=== PATIENT | female | born 1985 | race Caucasian/White ===

== ENCOUNTER 2019-08-07 00:07 | Emergency (ER) | payer SELFPAY ==
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
[2019-08-07 00:20] VITALS: BP 160/102; PULSE 88; RESP 20; TEMP 36.6; O2SAT 99
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
[2019-08-07 01:22] VITALS: BP 140/86; PULSE 100; RESP 20; O2SAT 99
== END 2019-08-07 01:26 | disposition home or self-care (01) ==
PROVIDERS: Emergency Provider Surgery
DX: S63.642A Sprain of metacarpophalangeal joint of left thumb, initial encounter (principal); W22.8XXA Striking against or struck by other objects, initial encounter
CPT/HCPCS: 73130; 99282; 99283

== ENCOUNTER 2021-03-11 22:31 | Emergency (ER) | payer SELFPAY ==
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
== END 2021-03-11 23:29 | disposition left against medical advice (07) ==
PROVIDERS: Emergency Provider Family Medicine
DX: Z04.9 Encounter for examination and observation for unspecified reason (principal)
CPT/HCPCS: 99199

== ENCOUNTER 2021-03-14 18:11 | Emergency (ER) | payer OTHER, SELFPAY ==
--- NOTE | ~2021-03-14 | XR_ITS ---
EXAMINATION: XR chest 1V portable DATE: 03/14/2021 18:53 INDICATION: Shortness of breath. TECHNIQUE: A single frontal view of the chest was obtained. COMPARISON: Chest 01/02/2018, CT abdomen and pelvis 07/27/2017 FINDINGS: The chest demonstrates clear lungs without pneumonia, pleural effusion, or pneumothorax. Th e heart size is normal. There is an old healed left rib fracture. There are changes of disc replaceme nt in cervical spine. IMPRESSION: 1. No acute cardiopulmonary disease. Reviewed, dictated and finalized at location A.
[2021-03-14 18:26] VITALS: BP 109/69; PULSE 128; RESP 40; TEMP 36.8; O2SAT 98
--- NOTE | 2021-03-14 18:31 | ECG_ITS ---
Measurements Intervals [place] Rate: 108 P: 0 [place]: 179 QRS: -22 QRSD: 112 T: 4 QT: 331 QTc: 445 Interpretive Statements SINUS TACHYCARDIA INCOMPLETE RIGHT BUNDLE BRANCH BLOCK BORDERLINE R WAVE PROGRESSION, ANTERIOR LEADS INFERIOR INFARCT, AGE INDETERMINATE BASELINE ARTIFACT- V4-V6 ABNORMAL ECG Electronically Signed On 03-16-2021 7:44:46 CDT by Christiano Page D.O.
--- NOTE | 2021-03-14 18:59 | PC.NURSE ---
1858 PT REFUSED IV AND FLUIDS
[2021-03-14] MEDS: LORazepam (*CRX) 0.5 MG TABLET 1 MG PO (19:00)
[2021-03-14 19:11] LABS: Basophils Absolute Auto 0.05 K/mm3 (0.00-0.10); Basophils Percent Auto 0.7 % (0.0-1.0); Eosinophils Percent Auto 1.4 % (1.0-6.0); Hematocrit 54.2 % (35.0-49.0); Hemoglobin 19.2 g/dL (12.0-15.0); Immature Granulocyte Absolute 0.02 K/mm3 (0.00-0.00); Immature Granulocyte Percent A 0.3 % (0.0-0.0); Lymphocytes Absolute Auto 2.81 K/mm3 (1.10-4.50); Lymphocytes Percent Auto 39.5 % (18.0-42.0); Mean Corpuscular HGB Conc 35.4 g/dL (32.0-36.0); Mean Corpuscular Volume 101.5 fL (78.0-102.0); Mean Platelet Volume 8.2 fl (9.2-11.8); Monocytes Absolute Auto 0.46 K/mm3 (0.10-0.90); Monocytes Percent Auto 6.5 % (2.0-11.0); Neutrophils Absolute Auto 3.7 K/mm3 (1.7-7.2); Neutrophils Percent Auto 51.6 % (50.0-70.0); Platelet Count Result 186 K/mm3 (150-420); Red Blood Count 5.34 M/mm3 (4.20-5.40); Red Cell Distribution Width 12.6 % (11.6-14.4); White Blood Count 7.1 K/mm3 (4.8-10.8)
[2021-03-14 19:27] LABS: Alanine Aminotransferase 44 U/L (14-59); Albumin Level 3.7 g/dL (3.4-5.0); Alkaline Phosphatase 75 U/L (46-116); Anion Gap 14 mmol/L (8-16); Aspartate Amino Transferase 32 U/L (15-37); Bilirubin,Total 0.4 mg/dL (0.00-1.00); Blood Urea Nitrogen 5 mg/dL (7-18); Calcium 8.5 mg/dL (8.5-10.1); Carbon Dioxide 26 mmol/L (21-32); Chloride 103 mmol/L (98-108); Estimated CRCL calculation 110 ml/min; Estimated Glomerular Filt Rate > 60; Glucose 109 mg/dL (70-99); Osmolality Calculated 294 mOsm/kg (285-295); Potassium 3.5 mmol/L (3.5-5.1); Sodium 143 mmol/L (136-145); Total Protein 7.7 g/dL (6.4-8.2)
[2021-03-14 19:28] LABS: Troponin I < 4.0 ng/L (0.00-60.4)
[2021-03-14 19:29] LABS: Ethanol 322 mg/dL (0-6)
[2021-03-14 19:34] VITALS: BP 155/104; PULSE 111; RESP 20; TEMP 36.7; O2SAT 97
[2021-03-14 19:35] LABS: SARS-CoV-2 Ag Negative (Negative)
[2021-03-14 19:52] LABS: SPREG INTERNAL CONTROL Positive; Serum Qual hCG Negative
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
== END 2021-03-14 19:37 ==
LOC: CHSED 18:15
PROVIDERS: Emergency Provider Emergency Medicine
DX: F41.9 Anxiety disorder, unspecified (principal); F10.929 Alcohol use, unspecified with intoxication, unspecified; Z20.822 Contact with and (suspected) exposure to COVID-19
CPT/HCPCS: 36415; 71045; 80053; 80307; 84484; 84703; 85025; 87426; 93005; 99283; A9270; C9803

== ENCOUNTER 2021-05-03 10:24 | Emergency (ER) | payer OTHER, SELFPAY ==
--- NOTE | ~2021-05-03 | CT_ITS ---
EXAMINATION: CT diagnostic chest wo con DATE: 05/03/2021 11:43 INDICATION: left rib pain LEFT RIB PAIN FOR 2 WEEKS/SOB/NO TRAUMA TECHNIQUE: Computed tomography (CT) of the chest was performed without intravenous contrast. Addition al 3D reconstructions utilizing coronal maximum intensity projection (MIP) were performed. Automated exposure control and iterative reconstruction technique were employed. The dose-length product was 52 5.67 mGy-cm. COMPARISON: None FINDINGS: Mild discoid atelectasis along the right minor fissure. There are couple calcified nodules in the lef t upper lobe consistent with old granulomatous disease. No pneumonia, pulmonary edema, pleural effusi on or pneumothorax heart size is normal. No pericardial effusion. Atelectatic ascending thoracic aort a measuring up to 3.9 x 3.8 cm. Ovoid soft tissue density measuring 9 x 8 mm in transaxial dimension and 1.9 cm craniocaudally along the posterior margin of the mid descending thoracic aorta without def inite intervening fat plane. No pathologically enlarged thoracic lymphadenopathy. Disc replacement at C5-C6 with bridging anterior osteophyte. Mild thoracic spondylosis. IMPRESSION: 1. Soft tissue density measuring 9 x 8 mm in transaxial dimension and 1.9 cm craniocaudally along the posterior margin of the mid descending thoracic aorta without definite intervening fat plane equivoc al for small saccular aneurysm/penetrating atherosclerotic ulcer versus para-aortic lymph node. Consi giancarlo thoracic aortic CT angiogram for further evaluation. 2. No other acute cardiopulmonary disease. Reviewed, dictated and finalized at location A. SPA MANAGER IMPRESSION: 1. Soft tissue density measuring 9 x 8 mm in transaxial dimension and 1.9 cm cr aniocaudally along the posterior margin of the mid descending thoracic aorta wi thout definite intervening fat plane equivocal for small saccular aneurysm/pene trating atherosclerotic ulcer versus para-aortic lymph node. Consider thoracic aortic CT angiogram for further evaluation. 2. No other acute cardiopulmonary disease.
--- NOTE | ~2021-05-03 | CT_ITS ---
EXAMINATION: CTA chest DATE: 05/03/2021 12:48 INDICATION: 2 weeks of left-sided rib pain with possible aneurysm versus penetrating atherosclerotic ulcer along the descending thoracic aorta. TECHNIQUE: Computed tomographic angiography (CTA) of the chest was performed without and with 100 mL Omnipaque-350 intravenous contrast. Volume-rendered 3D-reconstructions of the aorta and large arterie s were constructed by the technologist on a separate workstation. Automated exposure control and iter ative reconstruction technique were employed. The dose-length product was 888.53 mGy-cm. COMPARISON: CT dated 05/03/2021 at 11:38 AM FINDINGS: Unchanged mild discoid atelectasis along the right minor fissure. Calcified left upper lobe nodules c onsistent with old granulomatous disease. No pneumonia, pulmonary edema, pleural effusion or pneumoth orax. Heart size is normal. No pericardial effusion. Ectatic ascending thoracic aorta measuring up to 3.9 cm in maximal diameter. This tapers to normal caliber of 2.8 x 2.6 similar at the proximal arch at the level of the takeoff of the innominate artery. Descending thoracic aorta is also normal in lázaro iber throughout with no dissection or penetrating atherosclerotic ulcer with smooth endothelial ilya n in the region of the previous noted soft tissue density along the posterior margin of the mid desce nding aorta. On the reconstructed sagittal images there appears be a thin fat plane between portion o f the nodule from the underlying aorta in this most likely represents a small para-aortic lymph node which remains within normal limits in size. No pathologically enlarged thoracic lymphadenopathy. Alth ough not performed as a dedicated pulmonary embolism protocol there is good contrast opacification of the pulmonary arteries demonstrating no pulmonary embolism. Visualized upper abdomen is unremarkable . Mild thoracic spondylosis. Again seen is a prosthetic disc with bridging anterior osteophytes at C5 -C6. IMPRESSION: 1. No pulmonary embolism or other acute cardiopulmonary disease. 2. Ectatic ascending thoracic aorta measuring up to 3.9 cm. The small lesion of concern along the mid descending thoracic aorta appears separate from the aorta on the current study most likely small par a-aortic lymph node. Reviewed, dictated and finalized at location A. DER IMPRESSION: 1. No pulmonary embolism or other acute cardiopulmonary disease. 2. Ectatic ascending thoracic aorta measuring up to 3.9 cm. The small lesion of concern along the mid descending thoracic aorta appears separate from the aort a on the current study most likely small para-aortic lymph node.
[2021-05-03 10:38] VITALS: BP 128/110; PULSE 98; RESP 20; TEMP 36.3; O2SAT 99
--- NOTE | 2021-05-03 11:08 | ECG_ITS ---
Measurements Intervals [place] Rate: 94 P: -11 [place]: 177 QRS: -20 QRSD: 99 T: -2 QT: 351 QTc: 440 Interpretive Statements SINUS RHYTHM INCOMPLETE RIGHT BUNDLE BRANCH BLOCK DELAYED PRECORDIAL R/S TRANSITION CONSIDER INFERIOR INFARCT, AGE INDETERMINATE BASELINE ARTIFACT- I, II, III, AVR, AVL, AVF, V5 ABNORMAL ECG Electronically Signed On 05-03-2021 20:32:45 CONCRETE FOREMAN by Christiano Page D.O.
[2021-05-03 11:22] LABS: Basophils Absolute Auto 0.03 K/mm3 (0.00-0.10); Basophils Percent Auto 0.5 % (0.0-1.0); Eosinophils Absolute Auto 0.12 K/mm3 (0.02-0.50); Hematocrit 52.3 % (35.0-49.0); Hemoglobin 18.4 g/dL (12.0-15.0); Immature Granulocyte Absolute 0.02 K/mm3 (0.00-0.00); Immature Granulocyte Percent A 0.3 % (0.0-0.0); Lymphocytes Absolute Auto 2.04 K/mm3 (1.10-4.50); Lymphocytes Percent Auto 33.6 % (18.0-42.0); Mean Corpuscular HGB Conc 35.2 g/dL (32.0-36.0); Mean Corpuscular Hemoglobin 35.4 pg (27.0-31.0); Mean Corpuscular Volume 100.6 fL (78.0-102.0); Mean Platelet Volume 8.2 fl (9.2-11.8); Monocytes Absolute Auto 0.53 K/mm3 (0.10-0.90); Monocytes Percent Auto 8.7 % (2.0-11.0); Neutrophils Absolute Auto 3.3 K/mm3 (1.7-7.2); Neutrophils Percent Auto 54.9 % (50.0-70.0); Platelet Count Result 174 K/mm3 (150-420); Red Cell Distribution Width 12.7 % (11.6-14.4); White Blood Count 6.1 K/mm3 (4.8-10.8)
[2021-05-03 11:26] LABS: Pregnancy On Board Control Positive; Urine Pregnancy Test Negative
[2021-05-03 11:44] LABS: Alanine Aminotransferase 28 U/L (14-59); Albumin Level 3.7 g/dL (3.4-5.0); Alkaline Phosphatase 86 U/L (46-116); Anion Gap 11 mmol/L (8-16); Aspartate Amino Transferase 16 U/L (15-37); Bilirubin,Total 0.3 mg/dL (0.00-1.00); Blood Urea Nitrogen 9 mg/dL (7-18); Calcium 8.8 mg/dL (8.5-10.1); Carbon Dioxide 28 mmol/L (21-32); Chloride 103 mmol/L (98-108); Estimated CRCL calculation 115 ml/min; Estimated Glomerular Filt Rate > 60; Glucose 105 mg/dL (70-99); Osmolality Calculated 292 mOsm/kg (285-295); Potassium 3.9 mmol/L (3.5-5.1); Sodium 142 mmol/L (136-145)
[2021-05-03] MEDS: KETOROLAC (*BKC) 60 MG/2 ML VIAL IM (11:46)
[2021-05-03 11:49] LABS: Lactic Acid Reflex 1.6 mmol/L (0.4-2.0)
--- NOTE | 2021-05-03 11:57 | ED.GENADULT ---
HPI - General Adult General Chief complaint: Unspecified Stated complaint: Rib injury left side Time Seen by Provider: 05/03/21 10:27 Source: patient and RN notes reviewed Mode of arrival: ambulatory Limitations: no limitations History of Present Illness complaint: left lateral ribs painful x 3 weeks. no acute fever, SOB or wheezing Onset (ago): week(s) Location: chest Radiation: non-radiation Severity: moderate Severity scale (1-10): 7 Quality: aching and sharp Pain Consistency: constant Relieving factors: none Exacerbating factors: movement Associated symptoms: denies other symptoms Treatments prior to arrival: none Related Data Allergies Allergy/AdvReac Type Severity Reaction Status Date / Time naproxen Allergy Severe Mouth, Verified 05/03/21 11:17 throat swelling Penicillins Allergy Unknown Verified 09/06/16 08:25 Review of Systems Review of Systems: All systems reviewed & are unremarkable except as noted in HPI and below Cardiovascular: Cardiovascular: Reports chest pain with activity PMFSH Past Medical History Medical History Anxiety Chocolate cyst of ovary Head injury Pleurisy without effusion Pneumonia Surgical History Surgical History History of appendectomy History of dilation and curettage History of laparoscopy History of neck surgery Family History Family History Grandparent Diabetes mellitus Hypertension Other Family history of malignant neoplasm of breast Social History Social History Smoking status: Current every day smoker Second hand tobacco smoke exposure: No Alcohol intake: current Exam Const: General: cooperative, alert, awake and uncomfortable Nutritional Appearance: obese Orientation/consciousness: patient oriented x3 Limitations: no limitations HENMT: Head: normal to inspection, normocephalic and atraumatic Ears: hearing grossly normal bilaterally, external ears normal and TM's normal bilaterally General nose exam: Normal external nose present Face and sinus: normal facial exam Mouth: Yes Normal oral and palatal mucosa present, Yes oropharynx normal and Yes moist mucous membranes Throat: posterior oropharynx normal Eyes: General: appearance normal, both eyes and all related structures Periorbital: periorbital findings normal Eyelids: eyelids normal Conjunctivae: conjunctivae normal Sclera: sclerae normal Cornea: corneas normal Pupils: Equal, round and reactive pupils present EOM: EOMs intact bilaterally Neck: Neck: normal visual inspection, full ROM and no lymphadenopathy Chest: Chest palpation & inspection: normal inspection of the chest, normal palpation of entire chest wall (very tender lateral left chest wall with no acute redness, swelling or defo) and localized rib tenderness with anteroposterior compression Resp: Effort & Inspection: normal respiratory effort Auscultation: clear to auscultation bilaterally Cardio: Jugular venous distension: no JVD Palpation: normal PMI Rate: regular rate Rhythm: regular rhythm Heart sounds: S1 normal heart sound present and S2 normal heart sound present Peripheral pulses: Peripheral pulses 2+ throughout GI: Inspection: normal to inspection GI Palp: No abdominal tenderness Percussion: Yes normal to percussion Auscultation: normal bowel sounds : General: Yes bladder normal to inspection Back/Spine/Pelvis: Back: no CVA tenderness Thoracic/Lumbar Spine: thoracic and lumbar spine normal to inspection Skin: General skin exam: normal color and no rashes or lesions noted Neuro: General: patient oriented x3, gait normal, moves all extremities, no meningeal signs, no focal motor deficits and CN's II-XI intact bilaterally Cranial nerves: Yes CN's II-XII intact bilaterally, Yes Bila
[2021-05-03 12:00] VITALS: BP 111/82; PULSE 94; RESP 18; O2SAT 95
--- NOTE | 2021-05-03 12:01 | PC.NURSE ---
Discussed pt current BP of 111/[address] Galo. Ok to not give clonidine.
[2021-05-03] MEDS: MORPHINE SULFATE (*CRX) 4 MG/ML INJ IM (13:47)
[2021-05-03 14:17] VITALS: BP 111/92; PULSE 84; RESP 18; O2SAT 96
== END 2021-05-03 14:18 | disposition home or self-care (01) ==
PROVIDERS: Emergency Provider Emergency Medicine
DX: R09.1 Pleurisy (principal)
CPT/HCPCS: 36415; 71250; 71275; 80053; 81025; 83605; 85025; 93005; 96372; 99283; 99284; J1885; J2270; Q9967

== ENCOUNTER 2021-06-18 00:18 | Emergency (ER) | payer OTHER, SELFPAY ==
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
[2021-06-18 00:24] VITALS: BP 118/97; PULSE 112; RESP 16; TEMP 36.4; O2SAT 95
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
[2021-06-18 01:24] VITALS: BP 106/84; PULSE 95; RESP 16; TEMP 36.6; O2SAT 100
--- NOTE | 2021-06-18 01:26 | PC.NURSE ---
physical examination of arm by erp with nurse at bedside.
== END 2021-06-18 01:27 | disposition home or self-care (01) ==
PROVIDERS: Emergency Provider Emergency Medicine
DX: S50.11XA Contusion of right forearm, initial encounter (principal)
CPT/HCPCS: 73090; 99282; 99283

== ENCOUNTER 2022-09-26 00:06 | Emergency (ER) | payer OTHER, SELFPAY ==
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
[2022-09-26 00:13] VITALS: BP 150/115; PULSE 68; RESP 18; TEMP 36.6; O2SAT 96
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
[2022-09-26] MEDS: diazePAM (*CRX) 5 MG TABLET 10 MG PO (00:25)
[2022-09-26] MEDS: HYDROcodone/acetaminophen (*CRX) 5-325 MG TABLET 1 TAB PO (00:25)
[2022-09-26 00:47] LABS: Pregnancy On Board Control Positive; Urine Pregnancy Test Negative
[2022-09-26 02:14] VITALS: BP 128/93; PULSE 93; RESP 18; O2SAT 98
== END 2022-09-26 02:15 | disposition home or self-care (01) ==
PROVIDERS: Emergency Provider Emergency Medicine; PCP Family Medicine
DX: T14.8XXA Other injury of unspecified body region, initial encounter (principal); F17.200 Nicotine dependence, unspecified, uncomplicated; Y04.2XXA Assault by strike against or bumped into by another person, initial encounter
CPT/HCPCS: 70450; 70486; 71250; 74176; 81025; 99284; A9270

== ENCOUNTER 2022-11-21 23:39 | Emergency (ER) | payer OTHER, SELFPAY ==
--- NOTE | ~2022-11-21 | XR_ITS ---
Portable chest x-ray Comparison: 03/14/2021 Clinical History: Chest pain, shortness of breath Findings: Lungs are clear, without focal consolidation or pleural effusion. Cardiomediastinal silho uette is stable. Bones and soft tissues are unremarkable. Impression: Clear lungs. Reviewed, dictated and finalized at location . Impression: Clear lungs.
--- NOTE | ~2022-11-21 | CT_ITS ---
Clinical Indication: Chest pain, abdominal aortic aneurysm CT Scan of the Chest, Abdomen, and Pelvis with Contrast: Technique: Contiguous sections were acquired throughout the chest, abdomen, and pelvis after intraven ous administration of 100 cc of Omnipaque 350. Dose reduction technique was used on this scan by faustina travis automated exposure control and iterative reconstruction technique. The dose-length product (DL P) was 1677.91 mGy-cm. COMPARISON: 09/26/2022 Findings: There is no evidence of any significant mediastinal, hilar or axillary lymphadenopathy. The mediastin al soft tissues appear normal. No thoracic aortic aneurysm or dissection. No large central pulmonary embolus. There is no evidence of pleural or pericardial effusion. The lungs are clear. No pulmonary nodules or infiltrates are noted. The liver, spleen, pancreas, gallbladder, adrenals and kidneys are within normal limits. No evidence of aortic aneurysm. No lymphadenopathy. No bowel obstruction or bowel wall thickening. There is no evidence to suggest acute appendicitis. Fa t-containing umbilical hernia present. There is a 2.6 cm soft tissue density nodule in the subcutaneo us soft tissues at the left flank region (axial image 157). Urinary bladder is unremarkable. Urinary bladder unremarkable. No adnexal mass evident. No ascites. Impression: 2.6 cm soft tissue density nodule in the subcutaneous soft tissues at the left flank region, as detai led above, nonspecific. Consider tissue sampling to establish a histologic diagnosis, as recommended on prior exam. No other significant findings. No abdominal aortic aneurysm. No etiology for chest pain identified. Reviewed, dictated and finalized at [facility]. Impression: 2.6 cm soft tissue density nodule in the subcutaneous soft tissues at the left flank region, as detailed above, nonspecific. Consider tissue sampling to estab oli a histologic diagnosis, as recommended on prior exam. No other significant findings. No abdominal aortic aneurysm. No etiology for ch est pain identified.
[2022-11-21 23:41] VITALS: BP 154/126; PULSE 114; RESP 19; TEMP 37.1; O2SAT 97
--- NOTE | 2022-11-21 23:46 | ECG_ITS ---
Measurements Intervals [place] Rate: 111 P: 16 [place]: 176 QRS: -23 QRSD: 97 T: 18 QT: 328 QTc: 447 Interpretive Statements SINUS TACHYCARDIA POSSIBLE ANTERIOR MYOCARDIAL INFARCTION , PROBABLY OLD [30 ms Q WAVE IN V3/V4, OR R < 0.2 mV IN V4] INFERIOR MYOCARDIAL INFARCTION , PROBABLY OLD [40+ ms Q WAVE AND/OR ST/T ABNORMALITY IN II/aVF] ABNORMAL ECG COMPARED TO ECG 05/03/2021 11:32:55 SINUS TACHYCARDIA NOW PRESENT Electronically Signed On 11-22-2022 10:44:14 CDT by Radames Urbina M.D.
[2022-11-22] VITALS (9 sets, daily range): BP systolic 122–139; BP diastolic 91–118; PULSE 95–114; RESP 13–20; O2SAT 94–100
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
[2022-11-22 00:23] LABS: Alanine Aminotransferase 34 U/L (14-59); Albumin Level 3.7 g/dL (3.4-5.0); Alkaline Phosphatase 60 U/L (46-116); Anion Gap 15 mmol/L (8-16); Aspartate Amino Transferase 19 U/L (15-37); Bilirubin,Total 0.5 mg/dL (0.00-1.00); Blood Urea Nitrogen 8 mg/dL (7-18); Calcium 8.6 mg/dL (8.5-10.1); Carbon Dioxide 20 mmol/L (21-32); Chloride 100 mmol/L (98-108); Estimated CRCL calculation 114 ml/min; Estimated Glomerular Filt Rate > 60; Ethanol 165 mg/dL (0-6); Glucose 230 mg/dL (70-99); Lipase 33 U/L (16-77); Osmolality Calculated 285 mOsm/kg (285-295); Potassium 3.6 mmol/L (3.5-5.1); Sodium 135 mmol/L (136-145); Total Protein 7.4 g/dL (6.4-8.2); Troponin I 4.4 ng/L (0.00-60.4)
[2022-11-22] MEDS: KETOROLAC 30 MG/ML VIAL (*BKC) IV PUSH (00:30)
[2022-11-22] MEDS: TETANUS,DIPHTHERIA,AC PERTUSSIS ADULT 0.5 ML (ADACEL) IM (00:30)
[2022-11-22 00:31] LABS: D Dimer 0.34 mg/L (0.19-0.50); Prothrombin Time 11.1 Seconds (9.50-12.10)
[2022-11-22 00:33] LABS: Hematocrit 54.9 % (35.0-49.0); Hemoglobin 19.1 g/dL (12.0-15.0); Mean Corpuscular HGB Conc 34.8 g/dL (32.0-36.0); Mean Corpuscular Hemoglobin 34.8 pg (27.0-31.0); Mean Platelet Volume 8.8 fl (9.2-11.8); Platelet Count Result 230 K/mm3 (150-420); Red Blood Count 5.49 M/mm3 (4.20-5.40); Red Cell Distribution Width 13.2 % (11.6-14.4); White Blood Count 8.6 K/mm3 (4.8-10.8)
[2022-11-22 01:00] LABS: Pregnancy On Board Control Positive; Urine Pregnancy Test Negative
[2022-11-22 01:12] LABS: Amphetamine Screen Urine Negative (Negative); Barbiturate Screen Urine Negative (Negative); Benzodiazepines Screen Urine Negative (Negative); Cannabinoid Screen Urine Positive (Negative); Cocaine Screen Urine Negative (Negative); Methadone Screen Urine Negative (Negative); Opiate Screen Urine Negative (Negative); Phencyclidine Screen Urine Negative (Negative)
[2022-11-22 02:13] LABS: Troponin I 5.4 ng/L (0.00-60.4)
--- NOTE | 2022-11-22 02:19 | PC.NURSE ---
Pt is requesting to sign out AMA stating I just want to go to bed . RN educated pt on importance of waiting for the CT scan results before pt can be safely discharged home. Pt tearful and stating that she wants to leave. aware.
== END 2022-11-22 02:45 | disposition home or self-care (01) ==
PROVIDERS: Emergency Provider Emergency Medicine; PCP Student in an Organized Health Care Education/Training Program
DX: S50.811A Abrasion of right forearm, initial encounter (principal); S80.811A Abrasion, right lower leg, initial encounter; R07.9 Chest pain, unspecified; F10.920 Alcohol use, unspecified with intoxication, uncomplicated; F41.9 Anxiety disorder, unspecified; I10 Essential (primary) hypertension; F17.200 Nicotine dependence, unspecified, uncomplicated; Z23 Encounter for immunization; Z79.899 Other long term (current) drug therapy; Y04.2XXA Assault by strike against or bumped into by another person, initial encounter
CPT/HCPCS: 36415; 71045; 71275; 74174; 80053; 80307; 81025; 83690; 83735; 84484; 85027; 85380; 85610; 85730; 90471; 90715; 93005; 99284; J1885; Q9967

== ENCOUNTER 2023-01-01 00:45 | Emergency (ER) | payer OTHER, SELFPAY ==
[2023-01-01 00:46] VITALS: BP 142/99; PULSE 100; RESP 20; TEMP 36.9; O2SAT 99
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
[2023-01-01] MEDS: LIDOCAINE HCL 1% LOCAL INJ 10 ML VIAL INFILTRATE (01:14)
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
== END 2023-01-01 01:55 | disposition left against medical advice (07) ==
LOC: CHSED 00:51
PROVIDERS: Emergency Provider Emergency Medicine; PCP Student in an Organized Health Care Education/Training Program
DX: S01.511A Laceration without foreign body of lip, initial encounter (principal); F17.200 Nicotine dependence, unspecified, uncomplicated; Y04.2XXA Assault by strike against or bumped into by another person, initial encounter; Y92.009 Unspecified place in unspecified non-institutional (private) residence as the place of occurrence of the external cause
CPT/HCPCS: 99281